=== PATIENT | female | born 2005 | race Caucasian/White ===

== ENCOUNTER 2024-09-06 20:00 | Emergency (ER) | payer MEDICAID, SELFPAY ==
--- NOTE | ~2024-09-06 | XR_ITS ---
CLINICAL HISTORY: pain 1 view abdomen Comparison: None Findings: No pneumoperitoneum or pneumatosis. A small amount of stool is identified over the expected location of the rectum. No dilated loops of bowel or evidence for bowel obstruction. No acute fractures. Impression: 1. Nonobstructed bowel-gas pattern. This document has been electronically signed by: Saman Stubbs MD on 09/07/2024 01:48:38
[2024-09-06 21:22] VITALS: BP 120/52; PULSE 74; RESP 16; TEMP 36.6; O2SAT 99; BMI 30.1
[2024-09-06 21:50] LABS: MANUAL DIFF FLAG NO
[2024-09-06 21:53] LABS: Basophils Percent Auto 0.4 % (0-2); Eosinophils Absolute Auto 0.1 X10*3/uL (0.0-0.4); Eosinophils Percent Auto 1.6 % (0-4); Hematocrit 37.7 % (37.0-47.0); Hemoglobin 12.4 g/dl (12.0-16.0); Imm Gran Abs Auto 0.02 X10*3/uL (0.00-0.03); Imm Gran Pct Auto 0.2 % (0.0-0.4); Lymphocytes Absolute Auto 2.4 X10*3/uL (1.2-4.9); Lymphocytes Percent Auto 26.5 % (20-40); Mean Corpuscular HGB Conc 32.9 g/dl (31.0-35.0); Mean Corpuscular Volume 82.1 fL (80.0-98.0); Mean Platelet Volume 10.7 fL (9.4-12.3); Monocytes Absolute Auto 0.7 X10*3/uL (0.1-1.2); Monocytes Percent Auto 7.5 % (2-11); Neutrophils Absolute Auto 5.7 x10*3/uL (2.0-8.3); Neutrophils Percent Auto 63.8 % (45-73); Platelet Count 292 X10*3/uL (160-400); Red Blood Count 4.59 X10*6/uL (4.20-5.50); Red Cell Distribution Width 14.7 % (11.0-16.0)
[2024-09-06 21:54] LABS: Appearance Urine Clear; Color Urine Yellow; Glucose Urine UA Negative (Negative); Leukocyte Esterase Urine Negative (Negative); Nitrite Urine Negative (Negative); PH 5.5 (5.0-9.0); Specific Gravity - Urine >= 1.030 (1.005-1.025); Urine Blood Negative (Negative); Urine Ketones Negative (Negative); Urine Protein Negative (Neg-Trace)
[2024-09-06 21:55] LABS: UPreg QC Valid YES; Urine Pregnancy NEGATIVE (NEGATIVE)
[2024-09-06 21:56] LABS: Bacteria Urine Trace (None Seen); Hyaline Casts Urine 0-2 /LPF (0-2); RBC Urine 0-2 /HPF (0-2); WBC Urine 0-5 /HPF (0-5)
[2024-09-06 22:34] LABS: Alanine Aminotransferase 8 U/L (0-31); Albumin Level 4.3 g/dL (3.5-5.0); Alkaline Phosphatase 70 U/L (39-117); Anion Gap 10 (12-20); Aspartate Amino Transferase 22 U/L (5-31); Bilirubin Total 0.3 mg/dL (0.0-1.0); Blood Urea Nitrogen 10 mg/dL (9-16); Calcium 9.3 mg/dL (8.4-10.2); Carbon Dioxide 25 mmol/L (22-29); Chloride 110 mmol/L (96-108); Creatinine Clr Calc Pharmacy 115.6; Estimated Glomerular Filt Rate > 60; Lipase 21 U/L (8-78); Potassium 3.9 mmol/L (3.3-5.1); Sodium 141 mmol/L (135-145); Total Protein 7.5 g/dL (6.5-8.0)
[2024-09-06 22:50] LABS: Glucose Random 76 mg/dL (60-115)
[2024-09-07 00:43] VITALS: BP 132/67; PULSE 77; RESP 16; TEMP 37.2; O2SAT 99
[2024-09-07] MEDS: Ondansetron ODT 4 MG TAB.RAPDIS TRANSLINGU (01:05)
--- NOTE | 2024-09-07 01:44 | ED.ABDPAIN ---
HPI - Abdominal Pain General Chief Complaint: Abdominal Pain Stated Complaint: nauseas, abdominal pain x3days Time Seen by Provider: 09/07/24 00:46 Source: patient and family Limitations: language barrier History of Present Illness ED Provider: Amy Encarnacion PA-C HPI narrative: 18-year-old female presents with generalized abdominal pain x3 days. Associated abdominal bloating, nausea and constipation. Last bowel movement was 2-3 days ago. Patient denies that she struggles with constipation. Denies any abdominal surgeries. Denies inability to pass flatus no fevers. Related Data Previous Rx's ?Medication ?Instructions ?Recorded ondansetron HCl 4 mg tablet 4 mg PO Q8H PRN nausea and 09/07/24 vomiting #10 tabs Allergies Allergy/AdvReac Type Severity Reaction Status Date / Time No Known Allergies Allergy Verified 09/06/24 21:29 Review of Systems Review of Systems Yes all other systems are reviewed and are negative Constitutional: Denies fatigue and Denies fever(s) Cardiovascular: Denies chest pain and Denies dyspnea Respiratory: Denies cough and Denies dyspnea Gastrointestinal: Reports abdominal pain, Reports constipation, Denies diarrhea, Reports nausea and Denies vomiting Endocrine: Denies fatigue PMF Past Medical History Attestation statement: The following information was validated with the patient. Social History Social History Advance Directives: No Advance Directives Information Provided: Yes Physical Exam ED Vital Signs: Vital Signs - 24 hr 09/06/24 21:22 09/07/24 00:43 Temperature 97.9 F 99 F Pulse Rate 74 77 Respiratory Rate 16 16 Blood Pressure 120/52 L 132/67 Pulse Oximetry 99 99 Oxygen Delivery Method Room Air Room Air BMI result Body Mass Index 30.1 Const Other: Alert Orientation/consciousness: patient oriented x3 Resp Effort & Inspection: normal respiratory effort Cardio Other: Normal peripheral perfusion GI Other: Abdomen is soft, subtle distention, soft, generalized tenderness to palpation without guarding Skin Other: Warm dry no rash Neuro General: patient oriented x3, no focal motor deficits and CN's II-XI intact bilaterally Psych Other: Cooperative Medical Decision Making Medical Decision Making MDM Narrative: 18-year-old female presents with generalized abdominal pain x3 days. Associated abdominal bloating, nausea and constipation. Last bowel movement was 2-3 days ago. Patient denies that she struggles with constipation. Denies any abdominal surgeries. Denies inability to pass flatus no fevers. No chronic issues History: Per patient I have considered the following differential diagnoses: Constipation, fecal impaction, bowel obstruction Plan: Patient is likely constipated as cause for her symptoms, screening labs were already obtained from triage and are unremarkable. We will obtain a KUB. We will be giving ODT Zofran. I have independently reviewed the following tests: Labs: No leukocytosis, not anemic, not , urine not infected, no electrolyte abnormalities KUB: Stool burden noted Lab Data 09/06/24 21:39 09/06/24 21:39 Labs: Lab Results 09/06/24 Range/Units 21:39 WBC 9.0 (4.8-10.8) X10*3/uL RBC 4.59 (4.20-5.50) X10*6/uL Hgb 12.4 (12.0-16.0) g/dl Hct 37.7 (37.0-47.0) % MCV 82.1 (80.0-98.0) fL MCH 27.0 (27.0-33.0) pg MCHC 32.9 (31.0-35.0) g/dl RDW 14.7 (11.0-16.0) % Plt Count 292 (160-400) X10*3/uL MPV 10.7 (9.4-12.3) fL Immature Gran % (Auto) 0.2 (0.0-0.4) % Neut % (Auto) 63.8 (45-73) % Lymph % (Auto) 26.5 (20-40) % [place] % (Auto) 7.5 (2-11) % Eos % (Auto) 1.6 (0-4) % Baso % (Auto) 0.4 (0-2) % Lymph # (Auto) 2.4 (1.2-4.9) X10*3/uL [place] # (Auto) 0.7 (0.1-1.2) X10*3/uL Eos # (Auto) 0.1 (0.0-0.4) X10*3/uL Baso # (Auto) 0.0 (0.0-0.2) X10*3/uL Abs Immat Gran (auto) 0.02 (0.00-0.03) X10*3/uL Absolute Neuts (auto) 5.7 (2.0-8.3) x10*3/uL Absolute Nucleated RBC 0.000 (0.0-0.012) X10*3/uL Nucleated RBC % (auto) 0.0 (0.0-0.2) /100WBC Sodium 141 (135-145) mmol/L Potassium 3.9 (3.3-5.1) mmol/L Chloride 110 H (96-108) mmol/L Carbon Dioxide 25 (22-29) mmol/L Anion Gap 10 L (12-20) BUN 10 (9-16) mg/dL Creatinine 0.74 (0.5-1.4) mg/dL Estim Creat Clear Calc 115.6 Estimated GFR > 60 Random Glucose 76 (60-115) mg/dL Calcium 9.3 (8.4-10.2) mg/dL Total Bilirubin 0.3 (0.0-1.0) mg/dL AST 22 (5-31) U/L ALT 8 (0-31) U/L Alkaline Phosphatase 70 (39-117) U/L Total Protein 7.5 (6.5-8.0) g/dL Albumin 4.3 (3.5-5.0) g/dL Lipase 21 (8-78) U/L Urine Color Yellow Urine Appearance Clear Urine pH 5.5 (5.0-9.0) Ur Specific [place] >= 1.030 H (1.005-1.025) Urine Protein Negative (Neg-Trace) mg/dL Urine Glucose (UA) Negative (Negative) mg/dL Urine Ketones Negative (Negative) mg/dL Urine Blood Negative (Negative) Urine Nitrite Negative (Negative) Ur Leukocyte Esterase Negative (Negative) Urine RBC 0-2 (0-2) /HPF Urine WBC 0-5 (0-5) /HPF Ur Squamous Epith Cells 3-5 (0-2) /HPF Urine Bacteria Trace (None Seen) Hyaline Casts 0-2 (0-2) /LPF Urine Test NEGATIVE (NEGATIVE) Medications Administered Discontinued Medications Generic Name Dose Route Start Last Admin Trade Name Freq PRN Reason Stop Dose Admin Ondansetron HCl 4 mg 09/07/24 00:51 09/07/24 01:05 Ondansetron Odt 4 Mg Tab.Rapdis TRANSLINGU 09/07/24 00:52 4 mg ONCE ONE Administration Discharge Plan Discharge Clinical Impression: Constipation Patient Disposition: Home, Self-Care Instructions: Constipation (ED) Additional Instructions: The x-ray revealed a your constipated. See home care instructions. You need to use gpcx-xlm-pspcvin Colace, this is a stool softener, 1 to 2 times a day. In addition you need to purchase cqeb-xlm-xjuxftq MiraLax. Mix the powder per package instructions. Drink the solution every 1-2 hours until you begin having multiple large volume bowel movements. Uses Zofran as needed if you are nauseous. Follow up with your primary care provider as needed. Prescriptions: New ondansetron HCl 4 mg tablet 4 mg PO Q8H PRN (Reason: nausea and vomiting) Qty: 10 0RF Print Language: Azerbaijani
[2024-09-07 02:04] VITALS: BP 132/67; PULSE 77; RESP 16; TEMP 37.2; O2SAT 99
== END 2024-09-07 02:04 | disposition home or self-care (01) ==
PROVIDERS: Emergency Provider Emergency Medicine
DX: K59.00 Constipation, unspecified (principal); R10.84 Generalized abdominal pain
CPT/HCPCS: 36415; 74018; 80053; 81001; 81025; 83690; 85025; 99283

== ENCOUNTER → 2024-09-07 00:51 | Outpatient (BNV) | payer MEDICAID, SELFPAY | PROVIDERS: Emergency Provider Emergency Medicine; Visit Provider Radiology Diagnostic Radiology | DX: R10.9 Unspecified abdominal pain (principal) | CPT/HCPCS: 74018 ==

== ENCOUNTER 2025-04-27 07:56 | Emergency (ER) | payer MEDICAID, SELFPAY ==
--- NOTE | ~2025-04-27 | XR_ITS ---
EXAMINATION: XR SHOULDER, LEFT CLINICAL INFORMATION: pain COMPARISON: None available. TECHNIQUE: AP external rotation, Grashey, scapular Y, and axillary views of the left shoulder. FINDINGS: No acute cortical disruption or malalignment. No lytic or blastic lesions. No soft tissue calcifications. No bony erosions. XR/XR shoulder LT min 2V IMPRESSION: Normal x-ray, left shoulder. Electronically signed by: Benjamin Liang MD 04/27/2025 09:06 AM EDT
[2025-04-27 08:07] VITALS: BP 109/73; PULSE 72; RESP 16; TEMP 36.6; O2SAT 98; BMI 28.3
[2025-04-27 08:35] LABS: UPreg QC Valid YES
--- NOTE | 2025-04-27 08:41 | ED.EXTPRO ---
HPI - Extremity Problem General Chief complaint: Extremity Injury, Upper Stated complaint: shoulder pain/dislocation? Time Seen by Provider: 04/27/25 08:15 Source: patient and RN notes reviewed Mode of arrival: ambulatory Limitations: no limitations History of Present Illness ED Provider: Lexi Cameron PA-C HPI Narrative: This is a 19-year-old female, with no known medical problems, who presents emergency department complaints of left shoulder pain since yesterday. Patient states that yesterday she was playing softball and when she swung the bat, she immediately felt pain in her left shoulder. She states that she was concerned for dislocation and was transported via EMS to [facility] where she obtain an x-ray. She states that she is waiting there for greater than 12 hours without being seen. She states that she continues to have pain. She last took Tylenol at midnight. Denies any numbness or tingling. No previous injury to this in the past. She reports possible chance of . No other complaints or concerns at this time. MD Complaint: extremity pain Onset (ago): day(s) Pain Consistency: constant Location: left and upper extremity Quality: aching Radiation: none Relieving factors: immobilization and rest Exacerbating factors: range of motion and palpation Associated symptoms: denies other symptoms Related Data Previous Rx's ?Medication ?Instructions ?Recorded ondansetron HCl 4 mg tablet 4 mg PO Q8H PRN nausea and 09/07/24 vomiting #10 tabs Allergies Allergy/AdvReac Type Severity Reaction Status Date / Time No Known Allergies Allergy Verified 04/27/25 08:12 Review of Systems Review of Systems: Constitutional : No Fever, No Chills ENT/Mouth : No sore throat, No Rhinorrhea Eyes: No Eye Pain, No Swelling, No Redness Cardiovascular : No Chest Pain, No SOB Respiratory : No Cough, No Sputum Gastrointestinal : No Nausea, No Vomiting, No Diarrhea, No abdominal Pain Genitourinary : No Dysuria, No Hematuria Musculoskeletal : +joint pain, No Myalgias, No Joint Swelling Skin : No Skin Lesions, positive skin rash Neuro : No Weakness, No Numbness, No Headache All other systems reviewed and are negative Yes all other systems are reviewed and are negative Constitutional: Constitutional: Reports as per [facility] Social History Social History Advance Directives: No Advance Directives Information Provided: Yes Do you have a plan to hurt others: No Plan Physical Exam Exam: Exam: General: Awake, alert, and oriented X3. No acute distress. HEENT: Normal inspection CVS: Normal heart rate and rhythm. Pulses normal. Respiratory: No respiratory distress Skin: Warm, dry, no rashes noted to exposed skin. Normal skin color. Normal skin turgor. Extremities: Left shoulder with no obvious bony deformity or swelling, diffuse tenderness throughout, limited range of motion with abduction to approximately 20?, able to forward flex to approximately 30?. Strong radial pulse. Neuro: Oriented X 3. No motor deficit. No sensory deficit. Vital Signs: Vital Signs: Last Vital Signs Temp 98 F 04/27/25 08:07 Pulse 72 04/27/25 08:07 Resp 16 04/27/25 08:07 BP 109/73 04/27/25 08:07 Pulse Ox 98 04/27/25 08:07 O2 Del Method Room Air 04/27/25 08:07 BMI result Body Mass Index 28.3 Medical Decision Making Medical Decision Making [facility] Narrative: This is a 19-year-old female who presents emergency department with concerns of left shoulder pain since yesterday. On arrival vital signs within normal limits. She is speaking full sentences under no acute distress. Patient with diffuse tenderness throughout the left shoulder. Patient reports possible chance of therefore U preg was ordered, which is negative. Will obtain x-rays to rule out any bony abnormalities. 9:15 AM 04/27/2025 (Lexi Cameron PA-C): X-rays returned, unremarkable. Discussed findings with patient. Discussed strict return precautions, she understands and agrees with plan. Patient stable for discharge. Differential Diagnosis Differential Diagnoses: The differential diagnosis associated with the presentation includes Dislocation, fracture, contusion, sprain, strain Lab Data [facility] Lab Attestation statement: I reviewed the patient's lab results. U preg negative Labs: Lab Results 04/27/25 Range/Units 08:30 Urine Test NEGATIVE (NEGATIVE) Radiology Impression Discussion of test interpretation with radiology: I have reviewed the radiologist's reading. Radiologist Impression: FINDINGS: No acute cortical disruption or malalignment. No lytic or blastic lesions. No soft tissue calcifications. No bony erosions. XR/XR shoulder LT min 2V IMPRESSION: Normal x-ray, left shoulder. Electronically signed by: Benjamin Liang MD 04/27/2025 09:06 AM EDT RP Dictated By: Benjamin Kohler MD Discharge Plan Discharge Clinical Impression: Strain of shoulder, left Instructions: Muscle Strain (ED), Shoulder Pain (ED) Additional Instructions: You were seen in the emergency department due to left shoulder pain. Your x-rays do not show any broken bones or dislocation. You likely have strained some of the muscles and or in the ligaments in your left shoulder. Gentle stretching, ice, and alternating between ibuprofen and Tylenol can be beneficial for pain. If you continue to have symptoms in your left shoulder, you may follow-up with the physician credentialing specialist, call to make an appointment. If any new or worsening symptoms occur including but not limited to worsening pain, decreased sensation in your left arm, please seek emergent care. Prescriptions: No Action ondansetron HCl 4 mg tablet 4 mg PO Q8H PRN (Reason: nausea and vomiting) Qty: 10 0RF Referrals: [facility] [Provider Group] Stand Alone Forms: Work/School Release Print Language: Bruneian
--- OUTSIDE RECORDS SUMMARY | 2025-04-27 09:04 | XMS_ITS | Clinical Summary ---
Author Organization [facility] Address [address] [place] [address] Phone Care Team Providers Care Specialty Finishing Utility Person Name Role Phone Physician, No Pcp Primary Care Provider Unavaila ble Allergies No known active allergies Medications PNV no.[id number] brown-epa-fish ( Gummies,zinc chelate,) 180 mcg-35 mg- 25 mg-5 mg tablet,chewable Take 1 Tablet by mouth daily. 3 Active vit,pia [id number] ( Low Iron) 27 mg iron- 1 mg tablet TAKE 1 TABLET BY MOUTH EVERY DAY FOR 3 Active ibuprofen (ADVIL,MOTRIN) 400 mg tablet Take 1 tablet (400 mg total) by mouth every 4 (four) hours. for pain 4 Active Active Problems No known active problems Encounters Date Type Department Care Team Description 04/06/2025 Telephone Obstetrics & Gynecology - [facility] [address] [place] [address] Oriana Miller CNM from Last 3 Months Immunizations Name Administration Dates Next Due Influenza Quadravalent, MDCK , 0.5ml, preservative free (Flucelvax) 6mo and older 06/12/2023 Tdap Tetanus diptheria acell ular pertussis (Boostrix; Adacel) 7yo and older 06/12/2023 Surgical History Surgery Date Site/Laterality Comments OTHER SURGICAL HISTORY PROCEDURE: DENIES PREVIOUS SURGERY Medical History Medical History Date Comments Patient denies medical problems DX:Patient denies medical problems Social History Tobacco Use Types Packs/Day Years Used Date Smoking Tobacco: Never Smokeless Tobacco: Never Alcohol Use Standard Drinks/Week Comments Never 0 (1 standard drink = 0.6 oz pur e alcohol) Comments Unknown Sex and Gender Information Value Date Recorded Sex Assigned at Not on file Legal Sex Female 8:50 PM EST Gender Identity Not on file Sexual Orientation Not on file Obstetrics History Para Term AB IAB SAB Ectopic Multiple Livin g Live Births 1 1 1 1 1 Date Outcome GA Total Labor Labor/2nd/3rd Weight Sex Type Anes PTL Brenda A1 A5 Name Clin 2022 35w 3d 2325 g (82 oz) F Vag-S pont Epidur al Y Livin g 8 9 Ashlyn h Alfdebbi o Complications:Carrier of shashi up B Streptococcus, [place] [place]pt received c [place] for labor 34w1d. THONE pt but pt arrived to [facility] in active labor Last Filed Vital Signs Vital Sign Reading Time Taken Comments Blood Pressure 105/67 03/10/2024 3:56 PM EDT Pulse 66 03/10/2024 3:56 PM EDT Temperature - - Respiratory Rate - - Oxygen Saturation - - Inhaled Oxygen Concentration - - Weight 70.8 kg (156 lb) 03/10/2024 3:56 PM EDT Height 157.5 cm (5' 2 ) 03/10/2024 3:56 PM EDT Body Mass Index 28.53 03/10/2024 3:56 PM EDT Plan of Treatment Upcoming Encounters Date Type Department Care Team (Late st Contact Info) Description 05/23/2025 3:00 PM EDT Office Visit Obstetrics & Gynecology - [address] [phone] Kayleen Arenas, LISANDRA [address] [place] [address] Health Maintenance Due Date Last Done Comments Varicella Vaccines (1 of 2 - 13+ 2-dose series) 2017 HPV Vaccines (1 - 3-dose series) 2019 Meningococcal B Vaccine (1 o f 2 - Standard) 2020 Annual Well Child Visit (3-2 1 years old) 09/19/2023 Social Influencers of Health Screening 09/19/2023 Hepatitis B Vaccines (1 of 3 - 19+ 3-dose series) 2023 Depression Screening 08/25/2024 Gonorrhea/Chlamydia Screening 03/11/2025 03/11/2024 COVID-19 Vaccine (1 - 2023-2 5 season) 2025 Influenza Vaccine (#1) 2025 06/12/2023 DTaP,Tdap,and Td Vaccines (2 - Td or Tdap) 06/12/2033 06/12/2023 HIV Screening Completed 02/21/2023 Hepatitis C Screening Completed 02/21/2023 HIB Vaccines Aged Out No longer eligi ble based on patient's age to complete this topic Hepatitis A Vaccines Aged Out No long er eligible based on patient's age to complete this topic IPV Vaccines Aged Out No longer eligi ble based on patient's age to complete this topic MMR Vaccines Aged Out No longer eligi ble based on patient's age to complete this topic Meningococcal ACWY Vaccine Aged Out N o longer eligible based on patient's age to complete this topic Pneumococcal Vaccine: Pediat rics (0 to 5 Years) and At-Risk Patients (6 to 49 Years) Aged Out No longer eligi ble based on patient's age to complete this topic RSV Immunization Patients Un silvano 20 months Aged Out No longer eligible b ased on patient's age to complete this topic Procedures Procedure Name Priority Date/Time Associated Diagnosis Comments GONORRHEA/CHLAMYDIA SCRREENING Routine 03/11/2024 HEPATITIS C SCREENING Routine 02/21/2023 HIV SCREENING Routine 02/21/2023 from Last 3 Months or Most Recently Relevant to Health Maintenance Results * Gonorrhea/Chlamydia Screening (03/11/2024) Gonorrhea/Chla mydia Screening Abstracted Historical Provider HEALTH MAINTENANCE Final Result * HIV Screening (02/21/2023) HIV Screening Abstracted Historical Provider HEALTH MAINTENANCE Final Result * Hepatitis C Screening (02/21/2023) Hepatitis C Screening Abstracted Historical Provider HEALTH MAINTENANCE Final Result from Last 3 Months or Most Recently Relevant to Health Maintenance [place] [id number] MEDICAID - [place] Care Teams Specialty Finishing Utility Person Relationship Specialty Start Date End Date Physician, No Pcp PCP - General 07/30/24
--- OUTSIDE RECORDS SUMMARY | 2025-04-27 09:04 | XMS_ITS | Clinical Summary ---
Author Organization [facility] Address [address] [place] [address] Care Team Providers Care Drafter Cartographic Name Role Phone KodiTiny landin [place] Primary Care Provider [phone] Source Comments PLEASE NOTE, if this patient is a minor, it may be UNLAWFUL to discuss sensitive information that is contained in these records (such as FAMILY PLANNING, MENTAL HEALTH or SUBSTANCE ABUSE) with the minor patient's parent or other person without the patient's specific authorization.[facility] Allergies No known active allergies Medications prenat.vits,pia, dqt-wtbm-pwidn per tabletIndication s:, unspecified gestational age ([facility]) Take 1 Tablet by mouth once daily 90 Tablet 5 02/03/2023 Active ibuprofen 400 mg tablet Take 1 Tablet by mouth 3 (three) times daily as needed for pain. 90 Tablet 1 01/11/2025 Active ferrous sulfate 325 mg (65 mg iron) tabletIndication s:Iron deficiency Take 1 Tablet by mouth once daily with breakfast. 90 Tablet 1 01/14/2025 Active Active Problems No known active problems Immunizations Immunization Administration Dates Next Due DTAP (DAPTACEL),5 PERTUSSIS ANTIGENS ,01/09/2006,04/22/2005,02/11,2004 Flu, Cell Culture based, Pre servative Free, 6m+, Flucelvax 06/12/2023 HEP B, PED/ADOL (HSXDIZI-J-WGXF/RECOMBIVAX-PEDS) 04/22/2005,02/11/2005,2004 HPV 9 (Gardasil) 12/20/2016,08/21/2016, 6 Hep A, Ped/adol, 2 Dose 07/29/2006,01/09/2006 Hib (PRP-T) 01/09/2006,02/11/2005,2004 INFLUENZA, SEASONAL, INJECTABLE 06/20/2016 IPV (IPOL) 2008, 5,02/11/2005,12/12 MENINGOCOCCAL B (Bexsero), OMV 07/04/2022 MENINGOCOCCAL MCV4P (MENACTRA) 06/20/2016 MMR (MMR II/Priorix) 2008,10/15/2005 Meningococcal Conjugate Quad rivalent (MenQuadfi), MenACWY-TT (MCV4) 01/11/2025,07/04/2022 PNEUMOCOCCAL CONJUGATE PCV 13 01/09/2006 ,04/22/2005,02/11/2005,12/12 TDAP 06/12/2023,06/20/2016 Varicella (Varivax), Live Vaccine 2008, Family History Medical History Relation Name Comments No Known Problems Daughter x1 No Known Problems Father No Known Problems Mother Diabetes Other High Cholesterol Other Hypertension Other Relation Name Status Comments Brother Alive Daughter x1 Alive Father Alive Mother Alive Other Social History Tobacco Use Types Packs/Day Years Used Date Smoking Tobacco: Never Smokeless Tobacco: Never Tobacco Cessation:Counseling Given: Not Answered Alcohol Use Standard Drinks/Week Comments Never 0 (1 standard drink = 0.6 oz pur e alcohol) Social Connections Answer Date Recorded Connectedness 0 05/03/2024 Financial Resource Strain Answer Date R ecorded Financial Resource Strain 0 2021 Stress Answer Date Recorded Stress 0 07/04/2022 Physical Activity Answer Date Recorded Physical Activity 0 07/04/2022 Food Insecurity Answer Date Recorded Food 0 05/20/2024 Transportation Needs Answer Date Record ed Transportation 0 07/04/2022 Housing Stability Answer Date Recorded Housing 0 07/04/2022 Safety and Environment Answer Date Sergei rded Safety 99 10/02/2023 Utilities Answer Date Recorded Utilities 0 07/04/2022 Employment Answer Date Recorded Employment 0 07/04/2022 Comments Unknown Sex and Gender Information Value Date Recorded Sex Assigned at Female 02/03/2023 9:41 AM PDT Legal Sex Female 8:26 AM PDT Gender Identity Female 02/03/2023 9:41 AM PDT Sexual Orientation Straight 02/03/2023 9: 41 AM PDT Last Filed Vital Signs Vital Sign Reading Time Taken Comments Blood Pressure 110/70 01/11/2025 2:07 PM EDT Pulse 98 01/11/2025 2:07 PM EDT Temperature 36.4 C (97.6 F) 10/02/2023 2:25 PM EST Respiratory Rate 16 01/11/2025 2:07 PM EDT Oxygen Saturation 98% 01/11/2025 2:07 PM EDT Inhaled Oxygen Concentration - - Weight 76.9 kg (169 lb 9.6 oz) 01/11/2025 2:07 P M EDT Height 160 cm (5' 2.99 ) 10/02/2023 2:25 PM EST Body Mass Index 30.05 10/02/2023 2:25 PM EST Plan of Treatment Health Maintenance Due Date Last Done Comments Imm-Meningococcal B (2 of 2 - Bexsero SCDM 2-dose series) 01/01/2023 07/04/2022 Relationship Safety Screening/Counseling 07/04/2023 07/04/2022 [id number] ( season) 2024 Alcohol and Drug Screen 08/25/2024 10/02/19 24, 02/03/2023, 02/03/2023, Additional history exists Imm-Influenza (#1) 2025 06/12/2023, 06/20/2016 Annual Wellness (Adult): Ind icated (All Coverage) 01/11/2026 01/11/2025, 01/11/2025, 10/02/2023 Anxiety Screening 01/11/2026 01/11/2025 Chlamydia Screening 01/11/2026 01/11/2025, 2 Gonorrhea Screening 01/11/2026 01/11/2025, 2 Tobacco Screening 01/12/2026 01/12/2025 Hypertension Screening (#1) 01/11/2028 Imm-DTaP/Tdap/Td (8 - Td or Tdap) 06/12/2033 06/12/2023, 06/20/2016, 2008, Additional history exists Imm-Hepatitis B Completed 04/22/2005, 01/24, 2004 Imm-Hepatitis A Completed 07/29/2006, 01/09/2006 Imm-MMR Completed 2008, 10/15/2005 Imm-Varicella Completed 2008, 01/09/2006 Imm-HPV Completed 12/20/2016, 07/26, 06/20/2016 Hepatitis C Screening Completed 07/04/2022 HIV Screening Completed 02/21/2023, 07/04/2022 Depression Annual Screen Completed 01/11/2025 Procedures Procedure Name Priority Date/Time Associated Diagnosis Comments REFERRAL SCANNED DOCUMENT 04/08/2025 3:00 AM EDT REFERRAL SCANNED DOCUMENT 03/09/2025 3:00 AM EDT REFERRAL SCANNED DOCUMENT 02/15/2025 3:00 AM EDT REFERRAL SCANNED DOCUMENT 02/09/2025 3:00 AM EDT C TRACHOMATIS/N GONORRHOEAE RNA,TMA Routine 01/11/2025 3:16 PM EDT Routine general medical examination at a health care facility HIV 1/2 AG & AB W/RFLX (4TH GEN) Routine 07/04/2022 10:48 AM EST Contact w and exposure to unsp communicable disease HEPATITIS C AB W/RFLX HCV RNA, QT, RT PCR Routine 07/04/2022 10:48 AM EST Contact w and exposure to unsp communicable disease from Last 3 Months or Most Recently Relevant to Health Maintenance Results * REFERRAL SCANNED DOCUMENT (04/08/2025 3:00 AM EDT) Only the most recent of4 resultswithin the time period is included. 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 SCAN REFERRAL Final Result * CHLAMYDIA/NEISSERIA GONORRHOEAE RNA, TMA, UROGENITAL Urine Urine Routine (01/11/2025 3:16 PM EDT) CHLAMYDIA TRACHOMATIS RNA, TMA NOT DETECTED NOT DETECTED [facility] [employer] NEISSERIA GONORRHOEAE RNA, TMA NOT DETECTED NOT DETECTED [facility] [employer] COMMENT [facility] [employer] [facility] [employer] Urine Urine specimen / Unknown 01/11/2025 3:16 PM EDT 01/11/2025 3:17 PM EDT Narrative [facility] - 01/12/2025 2:48 PM EDT FASTING:NO The analytical performance characteristics of this assay, when used to test SurePath(TM) specimens have been determined by [email or web address]. The modifications have not been cleared or approved by the FDA. This assay has been validated pursuant to the CLIA regulations and is used for clinical purposes. For additional information, please refer to https://[employer]/faq/MAG297 (This link is being provided for information/ educational purposes only.) Tiny Mariee [facility] LAB BODY FLUIDS AND STOOLS A MBULATORY Final Result Performing Organization Address [facility] de Phone Number [facility] [address] [place] [phone], [facility] [address] [address] * HEPATITIS C AB W/RFLX HCV RNA, QT, RT PCR (07/04/2022 10:48 AM EST) HEPATITIS C ANTIBODY NON-REACT SHERRIE NON-REACT SHERRIE [facility] SIGNAL TO CUT-OFF 0.04 <1.00 JP3 Measurement Comment: HCV antibody was non-reactive. There is no laboratory evidence of HCV infection. In most cases, no further action is required. However, if recent HCV exposure is suspected, a test for HCV RNA (test code 38478) is suggested. For additional information please refer to http://education.[employer]/faq/YEU90c4 (This link is being provided for informational/ educational purposes only.) Blood Blood / Unknown 07/04/2022 1 0:48 AM EST 07/04/2022 10:49 AM EST Narrative [facility] - 07/09/2022 5:58 PM EST PATIENT UNABLE TO VOID; ADVISED TO RETURN FOR COLLECTION. Radha Estrella MD LAB - BLOOD DRAW Edited Resul t - Final Performing Organization Address [facility] Co de Phone Number [facility] [address] [address], [employer] [employer] [address] [address] * HIV 1/2 AG & AB W/RFLX (4TH GEN) (07/04/2022 10:48 AM EST) HIV AG/AB, 4TH GEN NON-REAC TIVE NON-REAC TIVE [facility] Comment: HIV-1 antigen and HIV-1/HIV-2 antibodies were not detected. There is no laboratory evidence of HIV infection. PLEASE NOTE: This information has been disclosed to you from records whose confidentiality may be protected by state law. If your state requires such protection, then the state law prohibits you from making any further disclosure of the information without the specific written consent of the person to whom it pertains, or as otherwise permitted by law. A general authorization for the release of medical or other information is NOT sufficient for this purpose. For additional information please refer to http://education.[employer]/faq/IGP735 (This link is being provided for informational/ educational purposes only.) The performance of this assay has not been clinically validated in patients less than 2 years old. Blood Blood / Unknown 07/04/2022 1 0:48 AM EST 07/04/2022 10:49 AM EST Narrative [facility] - 07/09/2022 5:58 PM EST PATIENT UNABLE TO VOID; ADVISED TO RETURN FOR COLLECTION. Radha Estrella MD LAB - BLOOD DRAW Final Result [facility] [address] [address], [employer] [address] [address] from Last 3 Months or Most Recently Relevant to Health Maintenance Insurance [employer] Care Teams Drafter Cartographic Relationship Specialty Start Date End Date Tiny Mariee FNP [address] [place] [address] PCP - General Family Medicine, [employer] SUPER[employer]OR 12/08/24
[2025-04-27 09:29] VITALS: BP 111/68; PULSE 69; RESP 16; TEMP 36.6; O2SAT 98
[2025-04-27 09:34] VITALS: BP 111/68; PULSE 69; RESP 16; TEMP 36.6; O2SAT 98
== END 2025-04-27 09:35 | disposition home or self-care (01) ==
PROVIDERS: Physician Assistant Medical; Emergency Provider Emergency Medicine Emergency Medical Services; PCP Family Medicine
DX: S46.912A Strain of unspecified muscle, fascia and tendon at shoulder and upper arm level, left arm, initial encounter (principal); M25.512 Pain in left shoulder; X50.1XXA Overexertion from prolonged static or awkward postures, initial encounter; Y93.9 Activity, unspecified; Y92.328 Other athletic field as the place of occurrence of the external cause; Y99.8 Other external cause status
CPT/HCPCS: 73030; 81025; 99283; 99284

== ENCOUNTER → 2025-04-27 08:41 | Outpatient (BNV) | payer MEDICAID, SELFPAY | PROVIDERS: Emergency Provider Emergency Medicine Emergency Medical Services; PCP Family Medicine; Visit Provider Radiology Diagnostic Radiology | DX: M25.512 Pain in left shoulder (principal) | CPT/HCPCS: 73030 ==